=== PATIENT | male | born 1970 | race Two or more races ===

== ENCOUNTER 2020-03-11 03:06 | Inpatient (IN) | payer SELFPAY ==
[~2020-03-11] VITALS: Ht 180.3 cm; Wt 90.7 kg
[2020-03-11] MEDS ORDERED: cloNIDine HCL 0.1 MG TAB ONE (03:34)
[2020-03-11] MEDS ORDERED: cloNIDine HCL 0.1 MG TAB PO ONE (03:45)
[2020-03-11 06:35] VITALS: BP 142/88
[2020-03-11] MEDS ORDERED: CLINDAMYCIN 900MG IV 50 ML IV ONE (09:45)
[2020-03-11] MEDS ORDERED: cefTRIAXone 1GM/50ML D5W 50 ML IV ONE (09:45)
[2020-03-11] MEDS ORDERED: PNEUMOCOCCAL VACC POLYS 25 MCG/0.5 ML VIAL IM ONE (10:00)
[2020-03-11] MEDS ORDERED: NITROGLYCERIN 0.4 MG SL TAB SL PRN ×2 (10:00)
[2020-03-11] MEDS ORDERED: SODIUM CHLORIDE 0.9% 1,000 ML IV SCH (10:00)
[2020-03-11] MEDS ORDERED: ALUM & MAG HYDROX-SIMETH LIQ(MAALOX) 30 ML PO PRN (10:00)
[2020-03-11] MEDS ORDERED: INFLUENZA QUAD 2020-2021 0.5 ML SYRG IM ONE (10:00)
[2020-03-11] MEDS ORDERED: ACETAMINOPHEN 325 MG TAB PO PRN (10:00)
[2020-03-11] MEDS ORDERED: MORPHINE SULF INJ 2 MG/ML SYRINGE 1ML IV PRN ×3 (10:00)
[2020-03-11] MEDS ORDERED: ENOXAPARIN SOD 40 MG/0.4 ML SYRINGE SC SCH (10:00)
[2020-03-11] MEDS ORDERED: DOCUSATE SOD 100 MG CAP PO PRN (10:00)
[2020-03-11] MEDS ORDERED: HYDROcodone-ACET 5/325MG TAB PO PRN (10:00)
[2020-03-11] MEDS ORDERED: VANCOMYCIN PER PHARMACY 0 MG IV SCH (10:00)
[2020-03-11] MEDS ORDERED: LORazepam 0.5 MG TAB PO PRN (10:00)
[2020-03-11] MEDS ORDERED: ONDANSETRON HCL 4 MG/2 ML VIAL IV PRN (10:00)
[2020-03-11] MEDS ORDERED: PIPERACILLIN-TAZOB 3.375GM 100 ML IV SCH (12:00)
== END 2020-03-11 12:15 | disposition left against medical advice (07) | DRG 603 ==
LOC: ER 03:07 → TELE 03:08
PROVIDERS: ADMIT Hospitalist; ATTEND Hospitalist
DX: L03.115 Cellulitis of right lower limb (principal); I10 Essential (primary) hypertension; L02.415 Cutaneous abscess of right lower limb
CPT/HCPCS: 73700; G0378

== ENCOUNTER 2020-03-12 23:44 | Emergency (ER) | payer SELFPAY ==
[~2020-03-12] VITALS: Ht 180.3 cm; Wt 90.7 kg
[2020-03-13] MEDS ORDERED: cloNIDine HCL 0.1 MG TAB PO ONE (00:15)
[2020-03-13] MEDS ORDERED: cloNIDine HCL 0.1 MG TAB ONE (00:36)
[2020-03-13 02:20] LABS: Basophils # (auto) 0 10 ^3/uL (0-0.2); Basophils % (auto) 0.5 % (0.0-2.0); Eosinophils # (auto) 0.4 10 ^3/uL (0-0.8); Eosinophils % (auto) 5.9 % (0.0-7.0); Hematocrit 39.7 % (41.0-53.0); Hemoglobin 13.3 g/dL (13.5-17.5); Lymphocytes # (auto) 1.4 10 ^3/uL (0.4-5.4); Lymphocytes % (auto) 19.6 % (10.0-50.0); Mean Corpuscular Hemoglobin 29.7 pg (28.0-32.0); Mean Corpuscular Hgb Conc. 33.5 g/dL (32.0-36.0); Mean Corpuscular Volume 88.7 fL (80.0-100.0); Monocytes # (auto) 0.6 10 ^3/uL (0-1.3); Neutrophils # (auto) 4.9 10 ^3/uL (1.6-8.6); Nucleated Red Blood Cells % 0.1 %; Platelet Count (auto) 340 10^3/uL (140-450); Red Blood Cells 4.48 10^6/uL (4.5-5.90); Red Cell Distribution Width 13.2 % (11.8-14.3); White Blood Cell 7.4 10^3/uL (4.4-10.8)
[2020-03-13 02:42] LABS: Albumin 3.4 g/dL (3.4-5.0); BUN/Creatinine Ratio 13.3; Calcium 8.8 mg/dL (8.5-10.1); Potassium 4.2 mmol/L (3.5-5.1)
[2020-03-13 02:45] LABS: Bilirubin, Total 0.9 mg/dL (0.2-1.0); Total Protein 7.5 g/dL (6.4-8.2)
[2020-03-13] MEDS ORDERED: CLINDAMYCIN HCL 150 MG CAP PO ONE (04:30)
[2020-03-13] MEDS ORDERED: cefTRIAXone SOD 1,000 MG VL IM ONE (04:30)
[2020-03-13 04:32] VITALS: BP 146/94
== END 2020-03-13 05:30 | disposition home or self-care (01) ==
LOC: ER 23:45
DX: L03.115 Cellulitis of right lower limb (principal); I10 Essential (primary) hypertension
CPT/HCPCS: 36415; 80053; 82550; 85025; 93005; 96372; 99284; J0696

== ENCOUNTER 2020-12-29 20:23 | Emergency (ER) | payer MEDICAID, OTHER ==
[~2020-12-29] VITALS: Ht 167.6 cm; Wt 68.0 kg
[2020-12-29] MEDS ORDERED: HYDROcodone-ACET 5/325MG TAB PO ONE (21:15)
[2020-12-29] MEDS ORDERED: IOHEXOL 300 MG/ML 100ML BOTTLE IJ ONE ×2 (21:43→22:08)
[2020-12-29 22:26] LABS: Basophils # (auto) 0 10 ^3/uL (0-0.2); Eosinophils # (auto) 0 10 ^3/uL (0-0.8); Eosinophils % (auto) 0.1 % (0.0-7.0); Lymphocytes # (auto) 1.7 10 ^3/uL (0.4-5.4)
[2020-12-29 22:27] LABS: Basophils % (auto) 0.1 % (0.0-2.0); Hematocrit 40.9 % (41.0-53.0); Hemoglobin 13.8 g/dL (13.5-17.5); Lymphocytes % (auto) 10.7 % (10.0-50.0); Mean Corpuscular Hemoglobin 26.3 pg (28.0-32.0); Mean Corpuscular Hgb Conc. 33.7 g/dL (32.0-36.0); Monocytes # (auto) 1.2 10 ^3/uL (0-1.3); Monocytes % (auto) 7.4 % (0.0-12.0); Neutrophils # (auto) 12.8 10 ^3/uL (1.6-8.6); Neutrophils % (auto) 81.7 % (37.0-80.0); Nucleated Red Blood Cells % 0.1 %; Red Blood Cells 5.24 10^6/uL (4.5-5.90); Red Cell Distribution Width 15.4 % (11.8-14.3); White Blood Cell 15.7 10^3/uL (4.4-10.8)
[2020-12-29 22:56] LABS: Albumin 3.3 g/dL (3.4-5.0); Calcium 9.8 mg/dL (8.5-10.1); Potassium 3.8 mmol/L (3.5-5.1)
[2020-12-29 23:02] LABS: BUN/Creatinine Ratio 22.2; Bilirubin, Total 0.5 mg/dL (0.2-1.0); Total Protein 9.7 g/dL (6.4-8.2)
[2020-12-29 23:11] LABS: CRP High Sensitivity 5.33 mg/dL (< 0.3)
[2020-12-30 03:29] LABS: Urine Amorphous Crystal FEW /hpf (None Seen); Urine Bacteria FEW /hpf (None Seen); Urine Blood 2+ /uL (Negative); Urine Mucus FEW (None Seen); Urine WBC 2 /hpf (0 - 3)
[2020-12-30] MEDS ORDERED: HYDROcodone-ACET 5/325MG TAB PO ONE (08:15)
[2020-12-30 15:00] VITALS: BP 131/79
== END 2020-12-30 15:50 | disposition short-term general hospital (02) ==
LOC: ER 20:23
DX: G95.20 Unspecified cord compression (principal); M48.061 Spinal stenosis, lumbar region without neurogenic claudication; I10 Essential (primary) hypertension; F17.210 Nicotine dependence, cigarettes, uncomplicated; Z20.822 Contact with and (suspected) exposure to COVID-19
CPT/HCPCS: 36415; 72125; 72129; 72132; 80053; 81001; 85025; 85652; 86141; 87426; 99285; Q9967